=== PATIENT | female | born 1985 | race Asian ===

== ENCOUNTER 2022-05-14 16:11 | Emergency (ER) | payer OTHER ==
[~2022-05-14] VITALS: Ht 157.5 cm; Wt 53.1 kg
[2022-05-14 16:18] VITALS: BP_SYST 131
--- NOTE | 2022-05-14 16:20 | NUR ---
Pt brought by self, A&Ox4, pt presents to ER with catbite on R hand, redness noted, no bleeding noted, skin pink and warm, cap refill <3.
--- NOTE | 2022-05-14 16:30 | NUR ---
Dr Jones evaluating patient at bedside
[2022-05-14 17:55] LABS: BASOPHILS % (AUTO) 0.3 % (0.0-2.0); EOSINOPHILS % (AUTO) 0.4 % (0.0-4.0); HEMATOCRIT 38.6 % (36-48); HEMOGLOBIN 13.2 g/dL (12.0-16.0); LYMPHOCYTES # (AUTO) 1.3 K/uL (1.0-5.5); LYMPHOCYTES % (AUTO) 11.9 % (20.5-51.5); MEAN CORPUSCULAR HEMOGLOBIN 32 pg (27-31); MEAN CORPUSCULAR HGB CONC 34 % (32-36); MEAN CORPUSCULAR VOLUME 92 fL (79.0-98.0); MONOCYTES # (AUTO) 0.4 K/uL (0.0-1.0); MONOCYTES % (AUTO) 3.9 % (1.7-9.3); NEUTROPHILS # (AUTO) 8.8 K/uL (1.8-7.7); NEUTROPHILS % (AUTO) 83.5 % (40.0-70.0); PLATELET COUNT (AUTO) 211 K/uL (130-430); RED BLOOD CELL COUNT(AUTO) 4.18 MIL/uL (4.2-6.2); RED CELL DISTRIBUTION WIDTH 13.2 % (9.0-15.0); WHITE BLOOD COUNT (AUTO) 10.5 K/uL (4.8-10.8)
[2022-05-14 18:00] LABS: CALCIUM 8.7 mg/dL (8.4-11.0); CREATININE 0.69 mg/dL (0.55-1.30); POTASSIUM 3.4 mmol/L (3.5-5.1)
[2022-05-14 18:05] LABS: ALBUMIN 3.4 g/dL (3.4-4.8); C-REACTIVE PROTEIN QUANT 3.1 mg/dL (0-0.5); TOTAL BILIRUBIN 0.6 mg/dL (0.0-1.0)
[2022-05-14] MEDS ORDERED: AMOX-423 PO (18:33)
[2022-05-14] MEDS ORDERED: AMOXICILLIN/CLAVULANATE POTASSIUM 875 MG TABLET PO ONE (18:45)
[2022-05-14 19:19] VITALS: BP_SYST 131
--- NOTE | 2022-05-14 19:20 | NUR ---
Patient given written and verbal discharge instructions and verbalizes understanding. ER MD discussed with patient the results and treatment provided. Patient in stable condition. ID arm band removed. Rx of Augmentin given. Patient educated on pain management and to follow up with PMD. Pain Scale 0/10. Opportunity for questions provided and answered. Medication side effect fact sheet provided.
== END 2022-05-14 19:19 | disposition home or self-care (01) ==
LOC: SED 16:11
DX: S61.431A Puncture wound without foreign body of right hand, initial encounter (principal); Z79.899 Other long term (current) drug therapy; W55.01XA Bitten by cat, initial encounter; Y93.89 Activity, other specified; Y92.89 Other specified places as the place of occurrence of the external cause; Y99.8 Other external cause status
CPT/HCPCS: 36415; 80053; 83605; 85025; 86140; 99283